=== PATIENT | female | born 1945 | race Caucasian/White ===

== ENCOUNTER 2021-07-28 08:24 | Emergency (ER) | payer MEDICARE, BC ==
[2021-07-28 08:56] LABS: Bilirubin Neg (Negative); Blood, Urine 250 (Negative); Clarity Slightly Cloudy (Clear); Glucose, Urine (Dipstick) Normal (Negative); Ketone, Urine Negative (Negative); Leukocyte 25 (Negative); Nitrite Positive (Negative); Protein, Urine (Dipstick) 30 mg/dl (Neg-Trace); Urobilinogen Normal mg/dL (Less than 2); pH, Urine 6.5 (5.0-9.0)
[2021-07-28 09:25] LABS: Bacteria/HPF 1+ HPF (None Seen); RBC/HPF Greater than 50 HPF (0-3); Squamous Epithelial 0-3 HPF (0-3)
[2021-07-28] MEDS ORDERED: cefTRIAXone\\ROCEPHIN 1 GM VIAL ONE (09:38)
[2021-07-28] MEDS ORDERED: Sterile Water 10 ML ONE (09:38)
[2021-07-28] MEDS ORDERED: Nitrofurantoin Macrocrystal 50 MG CAP PO SCH (09:45)
== END 2021-07-28 09:55 | disposition home or self-care (01) ==
LOC: CSHERS 08:24
DX: N30.90 Cystitis, unspecified without hematuria (principal); I10 Essential (primary) hypertension; E78.5 Hyperlipidemia, unspecified
CPT/HCPCS: 81003; 81015; 96372; 99283; J0696

== ENCOUNTER 2023-03-18 22:35 | Emergency (ER) | payer MEDICARE, BC ==
[2023-03-18 23:39] LABS: #Eosinphils 0.3 10x3/uL (0.0-0.5); #Monocytes 0.8 10x3/uL (0.0-1.1); #Neutrophils 4.3 10x3/uL (1.5-8.4); %Basophils 0.4 % (0.0-2.0); %Lymphocytes 40.4 % (18.0-47.0); %Monocytes 8.4 % (0.0-10.0); %Neutrophils 47.4 % (40.0-75.0); Mean Corpuscular HGB CONC 33.5 g/dL (32.0-36.0); Mean Corpuscular Hemoglobin 28.4 pg (27.0-33.0); Mean Corpuscular Volume 84.8 fl (81.6-98.3); Mean Platelet Volume 10.8 fl (7.4-10.4); Platelet Count 219 10x3/uL (150-450); RBC Distribution Width 12.2 % (11.5-14.5); Red Blood Cell (RBC) Count 4.22 10x6/uL (3.90-5.03); White Blood Cell (WBC) Count 9.1 10x3/uL (3.5-10.5)
[2023-03-18 23:54] LABS: ALT (SGPT) 16 U/L (8-55); AST (SGOT) 16 U/L (5-34); Albumin 3.9 g/dL (3.4-4.8); Alkaline Phosphatase 56 U/L (40-110); Anion Gap 11 mmol/L (10-20); BUN (Urea Nitrogen) 18 mg/dL (9.8-20.1); Bilirubin, Total 0.3 mg/dL (0.2-1.2); Calc. Creatinine Clearance 0 mL/min (70-130); Calcium 8.8 mg/dL (7.8-10.44); Carbon Dioxide 24 mmol/L (23-31); Chloride 107 mmol/L (98-107); Estimated GFR 69; Globulin 2.2 g/dL (2.4-3.5); Glucose 103 mg/dL (83-110); Potassium 3.7 mmol/L (3.5-5.1); Protein, Total 6.1 g/dL (5.8-8.1); Sodium 138 mmol/L (136-145)
== END 2023-03-19 00:33 | disposition home or self-care (01) ==
LOC: CSHERS 22:35
DX: K92.1 Melena (principal); I10 Essential (primary) hypertension
CPT/HCPCS: 80053; 85025; 86850; 86900; 86901; 99284